=== PATIENT | female | born 2000 | race Caucasian/White ===

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

== ENCOUNTER 2023-03-11 13:01 | Outpatient (AMB) | payer OTHER, SELFPAY ==
--- NOTE | 2023-03-11 13:02 | AM.OFFWIN_ITS ---
Intake Vital Signs 03/11/23 13:08 Height 5 ft BP 102/58 L Blood Pressure Location Lt brachial Position Sitting Pulse 80 Pulse Source Pulse Oximeter Temp 97.5 F Temp Source Temporal Artery Scan Pulse Oximetry (%) 99 Oxygen Delivery Method Room Air Intake Visit Reasons: EP, Rash all over body Intake Note: Pt is here c/o having a rash all over her body. Patient Tobacco Use Status: Never used Tobacco Allergies No Known Allergies [No Known Allergies*] Allergy (Verified 03/11/23 13:03) Do you need a note to return to daycare/school/sports/work: No HPI HPI Comments History of Present Illness Details 1306 23-year-old female presents with itchiness throughout entire body, started 3-4 days ago, patient tells me she thinks her bed has some fiberglass on in the mattress may have a tear in it. She tells me she has been very itchy throughout. Initially she said she that this was an allergic reaction however she has no known allergies. She denies any new products such as lotions, perfumes, laundry detergent. Patient denies chest pain, shortness of breath, nausea, vomiting, abdominal pain, headache, vision changes, dizziness and weakness. Physical examination benign however there are few excoriations to upper extremities from patient itching. Concerns for contact dermatitis versus allergic reaction. Unlikely anaphylaxis no signs of airway compromise. Plan at this time Atarax and prednisone. Explained she should follow up with an front end specialist for full panel allergy testing.Educated patient on d iagnosis and treatment plan, answered all question, patient verbalizes understanding. At this time patient will be discharged home, advised to return with new or worsening symptoms. Educated on worrisome signs and symptoms and when to return. At this time I feel comfortable discharge home. PFSH Medical History Generalized anxiety disorder Hx of urinary tract infection Nexplanon in place Surgical History No pertinent past surgical history Family History Father Hx of diabetes mellitus History of hypertension Social History Alcohol intake: never Patient Tobacco Use Status: Never used Tobacco Substance Use Type: Marijuana Female Reproductive History Menstrual Age of Menarche: 14 Review of Systems Const Details: Constitutional : No Weight loss, No Fever, No Chills, No Fatigue, No Malaise ENT/Mouth : No sore throat, No Rhinorrhea Eyes: No Eye Pain, No Swelling, No Redness Cardiovascular : No Chest Pain, No SOB, No Dyspnea on Exertion, No Orthopnea, No Edema, No Palpitations Respiratory : No Cough, No Sputum, No Wheezing Gastrointestinal : No Nausea, No Vomiting, No Diarrhea, No Constipation, No abdominal Pain, No Hematochezia, No Melena Genitourinary : No Dysuria, No Urinary Frequency, No Hematuria, Musculoskeletal : No joint pain, No Myalgias, No Joint Swelling Skin : No Skin Lesions, + rash Neuro : No Weakness, No Numbness, No Dizziness, No Headache Psych : No Anxiety/Panic, No Depression All other systems reviewed and are negative All systems reviewed & are unremarkable except as noted in HPI and below Physical Exam Vital Signs: Vital signs stable Appearance: Alert.? Oriented X3.? No acute distress.? Head: Normocephalic, atraumatic, no step-offs or deformities Eyes: Pupils equal, round and reactive to light.? Throat: patent airway. Midline uvula patient speaking in full sentences con trolling secretions CVS: Normal heart rate and rhythm.? Pulses normal.? Respiratory: No respiratory distress.? Breath sounds normal.? Skin: Skin warm and dry.? Normal skin color.? Normal skin turgor.?+ excoriations to bilateral upper extremities however, unable to appreciate A rash. Extremities: No lower extremity edema.? No calf ttp. 5/5 strength to bilateral upper and lower extremities Back: No midline tenderness, no C-spine tenderness, full range of motion, no CVA tenderness bilaterally Neuro: Oriented X 3.? No motor deficit.? No sensory deficit. CN 2-12 intact Assessment & Plan Assessment & Plan (1) Itching: Code(s): L29.9 - Pruritus, unspecified Plan Take your medications as prescribed. If you were prescribed antibiotics today, it is important that you take your medication to their entirety, do not skip any doses, do not finish them early. Follow-up with your primary care provider this week. Return to the emergency department with new or worsening symptoms. Such as fevers, chills, chest pain, shortness of breath, nausea, vomiting, dizziness, headache, vision changes, lethargy In case of emergency call 911 Medications: New prednisone 20 mg PO DAILY 5 tabs 0RF 5 days hydrocortisone 1% (Anti-Itch (hydrocortisone)) 1 appl topical TID PRN 120 mL 0RF skin irritation hydroxyzine HCl 25 mg PO BID PRN 10 tabs 0RF itching Coding Level of Care Code Est Pt Level 3 (12423) Diagnoses Itching L29.9
[2023-03-11 13:08] VITALS: BP 102/58; PULSE 80; TEMP 36.4; O2SAT 99
== END 2023-03-11 14:00 | disposition home or self-care (01) ==
PROVIDERS: PCP Internal Medicine; Visit Provider Physician Assistant
DX: L29.9 Pruritus, unspecified (principal)
CPT/HCPCS: 99213

== ENCOUNTER 2023-07-14 14:45 | Outpatient (AMB) | payer OTHER, SELFPAY ==
[2023-07-14 15:08] VITALS: BP 116/70; PULSE 64; TEMP 36.1; O2SAT 96; BMI 29.1
--- NOTE | 2023-07-14 15:08 | MHC.OFFWIV ---
Intake Vital Signs 07/14/23 15:08 Height 5 ft Weight 149 lb BMI 29.1 BP 116/70 Blood Pressure Location Lt brachial Position Sitting Pulse 64 Pulse Source Pulse Oximeter Temp 97.0 F Temp Source Temporal Artery Scan Pulse Oximetry (%) 96 Oxygen Delivery Method Room Air Intake Visit Reasons: EP Lower Ab Pain Intake Note: pt is here today for lower AB pain yesterday morning Patient Tobacco Use Status: Never used Tobacco Allergies No Known Allergies [No Known Allergies*] Allergy (Verified 07/14/23 15:08) Do you need a note to return to daycare/school/sports/work: Yes HPI HPI Comments History of Present Illness Details This is a 23-year-old female with no stated past medical or surgical history presenting for evaluation of lower abdominal pain that she has had for the past 1 day. Patient reports pressure with urination and urinary frequency without dysuria, dyspareunia or vaginal discharge. Patient also denies having any fevers, chills or flank pain. Patient has taken ibuprofen without relief of her symptoms. Patient denies any new sick contacts. PFSH Medical History Generalized anxiety disorder Hx of urinary tract infection Nexplanon in place Surgical History No pertinent past surgical history Family History Father Hx of diabetes mellitus History of hypertension Social History Alcohol intake: never Patient Tobacco Use Status: Never used Tobacco Substance Use Type: Marijuana Female Reproductive History Menstrual Age of Menarche: 14 Review of Systems Const All systems reviewed & are unremarkable except as noted in HPI and below Denies chills and Denies fever(s) GI Reports abdominal pain (lower abdominal pain) Denies hematuria, Denies dysuria and Reports other (suprapubic pressure with urination) Musc Reports no additional complaints Physical Exam Vital Signs: Last Vital Signs Temp 97.0 F 07/14/23 15:08 Pulse 64 07/14/23 15:08 BP 116/70 07/14/23 15:08 Pulse Ox 96 07/14/23 15:08 Oxygen Delivery Method Room Air 07/14/23 15:08 BMI result Body Mass Index 29.1 Patient is afebrile. Const General: cooperative, healthy appearing, no acute distress and well developed Nutritional Appearance: average body habitus Orientation/consciousness: patient oriented x3 Limitations: no limitations Cardio Rate: regular rate Rhythm: regular rhythm GI Palpation (GI): Tenderness to palpation present (GI) other (suprapubic) Auscultation: normal bowel sounds General: No bladder normal to palpation and Yes CVA tenderness on the right (mild, no guarding) Bimanual exam- vagina & uterus: No bladder normal to palpation Back/Spine/Pelvis Back: CVA tenderness Skin General skin exam: no rashes or lesions noted Neuro General: patient oriented x3 Psych Appearance: grossly normal Mental Status: mental status grossly normal Insight: Good insight present (Psych) Judgement: Good judgement present (Psych) Results AMB Urinalysis, Automated UA Leukoctes 0 César/uL Last Edit by Li Osuna CMA on 07/14/23 16:31 UA Nitrite Negative Last Edit by Li Osuna CMA on 07/14/23 16:31 UA Urobilinogen 0.2 mg/dL Last Edit by Li Osuna CMA on 07/14/23 16:31 UA Protein 0 mg/dL Last Edit by Li Osuna CMA on 07/14/23 16:31 UA pH 6.0 Last Edit by Li Osuna CMA on 07/14/23 16:31 UA Blood 10 Darren/uL Last Edit by Li Osuna CMA on 07/14/23 16:31 UA Specific [place] 1.020 Last Edit by Li Osuna CMA on 07/14/23 16:31 UA Ketone Negative Last Edit by Li Osuna CMA on 07/14/23 16:31 UA Bilirubin 0 mg/dL Last Edit by Li Osuna CMA on 07/14/23 16:31 UA Glucose 0 mg/dL Last Edit by Li Osuna CMA on 07/14/23 16:31 Results Reviewed Results Reviewed: Laboratory Last Values Urine pH (Auto) 6.0 07/14/23 16:27 Specific [place] (Auto) 1.020 07/14/23 16:27 Urine Protein (Auto) 0 mg/dL 07/14/23 16:27 Glucose (UA)(Auto) 0 mg/dL 07/14/23 16:27 Urine Ketones (Auto) Negative 07/14/23 16:27 Urine Blood (Auto) 10 Darren/uL 07/14/23 16:27 Urine Nitrite (Auto) Negative 07/14/23 16:27 Urine Bilirubin (Auto) 0 mg/dL 07/14/23 16:27 Urine Urobilinogen (Auto) 0.2 mg/dL 07/14/23 16:27 Leukocyte Esterase (Auto) 0 César/uL 07/14/23 16:27 urinalysis reviewed; hematuria only Assessment & Plan Assessment & Plan (1) Urinary frequency: Code(s): R35.0 - Frequency of micturition Plan Macrobid 100mg BID x 7 days; follow-up with PCP within 7 days if symptoms do not resolve, sooner if symptoms worsen. Orders: Orders AMB Urinalysis Automated 07/14/23 Z13.9 - Encounter for screening, unspecified Medications: New nitrofurantoin monohyd/m-cryst 100 mg (Macrobid) must administer with a meal/food 100 mg PO BID 14 caps 0RF Coding Level of Care Code Est Pt Level 3 (18192) Diagnoses Urinary frequency R35.0
== END 2023-07-14 16:27 | disposition home or self-care (01) ==
PROVIDERS: PCP Internal Medicine; Visit Provider Physician Assistant
DX: R35.0 Frequency of micturition (principal)
CPT/HCPCS: 81003; 99213

== ENCOUNTER 2023-07-16 11:56 | Outpatient (AMB) | payer OTHER, SELFPAY ==
[2023-07-16 13:34] VITALS: BP 90/60; PULSE 75; TEMP 37.1; O2SAT 95; BMI 29.3
--- NOTE | 2023-07-16 13:34 | MHC.OFFWIV ---
Intake Vital Signs 07/16/23 13:34 Height 5 ft Weight 150 lb BMI 29.3 BP 90/60 Blood Pressure Location Lt brachial Position Sitting Pulse 75 Pulse Source Pulse Oximeter Temp 98.7 F Temp Source Oral Pulse Oximetry (%) 95 Oxygen Delivery Method Room Air Intake Visit Reasons: EP, abdominal pain Intake Note: Pt is here today c/o abdominal pressure and epigastric pain: was seen at our walkin 07/14 was given abx which pt hasn't started: Pt is now experiencing diarrhea and nausea Patient Tobacco Use Status: Never used Tobacco Allergies No Known Allergies [No Known Allergies*] Allergy (Verified 07/14/23 15:08) HPI HPI Comments History of Present Illness Details 23-year-old female history of frequent UTIs in abdominal pain that presents for lower abdominal pain. Patient has been experiencing nonspecific lower abdominal pain as well as diarrhea. She has seen evaluated oval 7 in prescribed Macrobid for presumptive UTI. She has not picked up the medication or been able to take it yet. She denies any other symptoms. PFSH Medical History Generalized anxiety disorder Hx of urinary tract infection Nexplanon in place Surgical History No pertinent past surgical history Family History Father Hx of diabetes mellitus History of hypertension Social History Alcohol intake: never Patient Tobacco Use Status: Never used Tobacco Substance Use Type: Marijuana Female Reproductive History Menstrual Age of Menarche: 14 Review of Systems GI Reports abdominal pain Physical Exam Vital Signs: Last Vital Signs Temp 98.7 F 07/16/23 13:34 Pulse 75 07/16/23 13:34 BP 90/60 07/16/23 13:34 Pulse Ox 95 07/16/23 13:34 Oxygen Delivery Method Room Air 07/16/23 13:34 BMI result Body Mass Index 29.3 Const General: cooperative, no acute distress and alert Orientation/consciousness: patient oriented x3 Limitations: no limitations HEENT Head: Yes normal to inspection Ears: hearing grossly normal bilaterally and external ears normal General nose exam: Normal external nose present Eyes General: appearance normal, both eyes and all related structures Neck Neck: Yes normal visual inspection Chest Chest palpation & inspection: normal inspection of the chest Resp Effort & Inspection: normal respiratory effort, able to speak in complete sentences and no audible wheezes Auscultation: clear to auscultation bilaterally Cardio Rate: regular rate Rhythm: regular rhythm GI Inspection: Yes normal to inspection Palpation (GI): Soft to palpation and nontender Skin General skin exam: no rashes or lesions noted Neuro General: patient oriented x3 Psych Appearance: grossly normal Mental Status: mental status grossly normal Speech and movement: Normal speech and movement present Affect: normal affect Attitude: cooperative Thought process: Normal thought process present Thought content: Normal thought content present Assessment & Plan Assessment & Plan (1) Abdominal pain: Code(s): R10.9 - Unspecified abdominal pain Qualifiers: Abdominal location: generalized Qualified Code(s): R10.84 - Generalized abdominal pain Plan: Unclear etiology of patient's abdominal pain records reviewed showed patient has a long history of episodes similar to this with usually pretty benign workups. Patient was seen evaluated 2 days prior and prescribed antibiotics which she has not taken yet. Discussed limitations of the urgent care to workup abdominal pain suggested patient to present to the emergency department for further evaluation and/or pickers material handlers prescribed antibiotics id take them as directed. Patient expressed that this time she would like to present to the emergency department Coding Level of Care Code Est Pt Level 3 (46799) Diagnoses Generalized abdominal pain R10.84 Abdominal location: generalized
== END 2023-07-16 14:13 | disposition home or self-care (01) ==
PROVIDERS: PCP Internal Medicine; Visit Provider Physician Assistant
DX: R10.84 Generalized abdominal pain (principal)
CPT/HCPCS: 99051; 99213